=== PATIENT | female | born 1970 | race Caucasian/White ===

== ENCOUNTER 2017-01-14 20:36 | Emergency (ER) | payer MEDICAID ==
[2017-01-14 20:43] VITALS: RESP 16; TEMP 98.4
[2017-01-14 21:51] LABS: % IMMATURE GRANULYOCYTES 1.1 % (0.0-1.1); ABSOLUTE IMMATURE GRANULOCYTES 0.07 10^3/uL (0.00-0.10); ADD DIFF? NO; ADD MORPH? NO; ADD SCAN? NO; ATYPICAL LYMPHOCYTE FLAG 20 (0-99); FRAGMENT RBC FLAG 0 (0-99); HEMATOCRIT 38.3 % (38.0-47.0); HEMOGLOBIN 12.4 g/dL (12.6-16.3); LEFT SHIFT FLG 10 (0-99); LIPEMIA HEMOLYSIS FLAG 80 (0-99); MEAN CELL HEMOGLOBIN CONCENTR. 32.4 g/dL (32.4-36.7); MEAN CELL VOLUME 89.5 fL (81.5-99.8); PLATELET CLUMPS FLAG 0 (0-99); PLATELET COUNT 310 10^3/uL (150-400); RED BLOOD CELL COUNT 4.28 10^6/uL (4.18-5.33)
[2017-01-14 21:52] LABS: ANION GAP 11 mEq/L (8-16); CALCIUM 9.3 mg/dL (8.5-10.4); CARBON DIOXIDE 24 mEq/l (22-31); CHLORIDE 99 mEq/L (97-110); CREATININE 0.8 mg/dL (0.6-1.0); GLOMERULAR FILTRATION RATE > 60; GLUCOSE 93 mg/dL (70-100); POTASSIUM 4.3 mEq/L (3.5-5.2); SODIUM 134 mEq/L (134-144)
--- NOTE | 2017-01-14 21:56 | CPEKG ---
Heart Rate: 90 RR Interval: 667 P-R Interval: 164 QRSD Interval: 76 QT Interval: 356 QTC Interval: 436 P [place]: 47 QRS [place]: 43 T Wave [place]: 17 EKG Severity - NORMAL ECG - EKG Impression: SINUS RHYTHM Electronically Signed By: Ahsok Marcelino 14-Jan-2017 22:23:15
--- NOTE | 2017-01-14 22:04 | EDPHY ---
H & P Stated Complaint: syncope Time Seen by Provider: 01/14/17 21:22 HPI/ROS: Chief Complaint: Syncope HPI: 46-year-old woman was out this evening with a friend having a beer when she had a hot flash, felt dizzy, later head in her hands and then had a witnessed syncopal episode sewed. Her friend lower her to the ground. She did not hit her head. She was unconscious for maybe 30 seconds. She was then immediately awake and alert and answering questions. She is postmenopausal secondary to a prophylactic oophorectomy for BRCA 1 gene mutation. Patient is a breast cancer survivor status post bilateral mastectomies in July of this year. She had 4 rounds of chemotherapy, the last was on the of this month. She has passed her yousif for her leukopenia. She has not had any fevers or chills. No chest pain or palpitations. No shortness of breath. She is currently without complaint. Does not have a family history of arrhythmia or sudden cardiac . ROS: 10 point Review of Systems is negative except as noted in the HPI. PMH: Breast cancer, BRCA 1 mutation, bilateral mastectomies, bilateral oophorectomies Social History: No smoking, occasional alcohol, occasional marijuana Family History: non-contributory Physical Exam: Gen: Awake, Alert, No Distress HEENT: Nose: no rhinorrhea Eyes: PERRLA, EOMI Mouth: Moist mucosa Neck: Supple, no JVD Chest: nontender, lungs clear to auscultation Heart: S1, S2 normal, no murmur Abd: Soft, non-tender, no guarding Back: no CVA tenderness, no midline tenderness Ext: no edema, non-tender Skin: no rash Neuro: CN II-XII intact, Sensation grossly intact, Strength 5/5 in bilateral upper and lower extremities - Personal History LMP (Females 10-55): Over 28 Days Ago Current Tetanus/Diphtheria Vaccine: Yes - Medical/Surgical History Hx Asthma: Yes Hx Chronic Respiratory Disease: No Hx Diabetes: No Hx Cardiac Disease: No Hx Renal Disease: No Hx Cirrhosis: No Hx Alcoholism: No Hx HIV/AIDS: No Hx Splenectomy or Spleen Trauma: No Other PMH: PSHx: bilateral mastectomy 08/19/2016, biilat oophorectomy 2015. PMHx: exercise induced asthma, stage 1 grade 3 triple negative breast cancer - Social History Smoking Status: Never smoked Constitutional: Initial Vital Signs Temperature (C) 36.9 C 01/14/17 20:39 Heart Rate 107 H 01/14/17 20:39 Respiratory Rate 16 01/14/17 20:39 Blood Pressure 103/72 01/14/17 20:39 O2 Sat (%) 96 01/14/17 20:39 O2 Delivery Mode Room Air Allergies/Adverse Reactions: Sulfa (Sulfonamide Antibiotics) Allergy (Severe, Verified 05/01/16 14:17) Other-Enter Comments Penicillins Allergy (Intermediate, Verified 05/01/16 14:17) Rash Home Medications: Medication Instructions Recorded Multivitamins [Tab-A-[place]] 1 each PO DAILY 09/12/14 clonazePAM [klonoPIN (RX)] 1 mg PO DAILY PRN 09/12/14 Albuterol 02/13/16 Claritin 01/14/17 Flexeril 01/14/17 IBUPROFEN 01/14/17 LORAZEPAM 01/14/17 Medical Decision Making - Diagnostics EKG Interpretation: ECG time 9:55 p.m., sinus rhythm with a rate of 90, normal axis, normal intervals, no acute ST or T-wave changes. Impression: Normal ECG. ED Course/Re-evaluation: 46-year-old woman with symptoms consistent with a vasovagal syncope. She was having a hot flash secondary to her perimenopausal symptoms when she had her syncope. She has no risk factors for arrhythmia. She has a normal CBC, normal chemistry and a normal ECG. She has not have any risk factors for arrhythmia. She is otherwise without complaint. Will discharge with follow-up with primary care physician, return for worsening. - Data Points Laboratory Results: Laboratory Results 01/14/17 21:20 01/14/17 21:20 01/14/17 01/14/17 21:20 21:20 WBC 6.10 10^3/uL 10^3/uL (3.80-9.50) RBC 4.28 10^6/uL 10^6/uL (4.18-5.33) Hgb 12.4 g/dL L g/dL (12.6-16.3) Hct 38.3 % % (38.0-47.0) MCV 89.5 fL fL (81.5-99.8) MCH 29.0 pg pg (27.9-34.1) MCHC 32.4 g/dL g/dL (32.4-36.7) RDW 17.0 % H % (11.5-15.2) Plt Count 310 10^3/uL 10^3/uL (150-400) MPV 8.0 fL L fL (8.7-11.7) Neut % (Auto) 65.8 % % (39.3-74.2) Lymph % (Auto) 20.7 % % (15.0-45.0) [place] % (Auto) 10.0 % % (4.5-13.0) Eos % (Auto) 0.3 % L % (0.6-7.6) Baso % (Auto) 2.1 % H % (0.3-1.7) Nucleat RBC Rel Count 0.0 % % (0.0-0.2) Absolute Neuts (auto) 4.01 10^3/uL 10^3/uL (1.70-6.50) Absolute Lymphs (auto) 1.26 10^3/uL 10^3/uL (1.00-3.00) Absolute Monos (auto) 0.61 10^3/uL 10^3/uL (0.30-0.80) Absolute Eos (auto) 0.02 10^3/uL L 10^3/uL (0.03-0.40) Absolute Basos (auto) 0.13 10^3/uL H 10^3/uL (0.02-0.10) Absolute Nucleated RBC 0.00 10^3/uL 10^3/uL (0-0.01) Immature Gran % 1.1 % % (0.0-1.1) Immature Gran # 0.07 10^3/uL 10^3/uL (0.00-0.10) Sodium 134 mEq/L mEq/L (134-144) Potassium 4.3 mEq/L mEq/L (3.5-5.2) Chloride 99 mEq/L mEq/L (97-110) Carbon Dioxide 24 mEq/l mEq/l (22-31) Anion Gap 11 mEq/L mEq/L (8-16) BUN 7 mg/dL mg/dL (7-23) Creatinine 0.8 mg/dL mg/dL (0.6-1.0) Estimated GFR > 60 Glucose 93 mg/dL mg/dL (70-100) Calcium 9.3 mg/dL mg/dL (8.5-10.4) Departure - Departure Disposition: Home, Routine, Self-Care Clinical Impression: Vasovagal syncope Condition: Good Instructions: Syncope (ED) Additional Instructions: Return to the emergency department for increasing lightheadedness, palpitations , fainting, chest pain, shortness of breath, or any other concerns. Referrals: CHRISTAL WILKES [Other] - As per Instructions
[2017-01-14 22:14] VITALS: BP 126/81; PULSE 97; O2SAT 98
== END 2017-01-14 22:13 | disposition home or self-care (01) ==
DX: R55 Syncope and collapse (principal); J45.909 Unspecified asthma, uncomplicated; Z85.3 Personal history of malignant neoplasm of breast

== ENCOUNTER → 2017-04-20 | Outpatient (CLI) | payer MEDICAID | LOC: BRMIMAGING 10:03 | PROVIDERS: ATTEND Physician Assistant | DX: Z13.820 Encounter for screening for osteoporosis (principal); M85.80 Other specified disorders of bone density and structure, unspecified site; C50.412 Malignant neoplasm of upper-outer quadrant of left female breast; Z78.0 Asymptomatic menopausal state ==

== ENCOUNTER → 2017-10-07 | Outpatient (CLI) | payer MEDICAID | LOC: BMCIMAGING 13:20 | PROVIDERS: ATTEND Internal Medicine Hematology & Oncology | DX: E05.90 Thyrotoxicosis, unspecified without thyrotoxic crisis or storm (principal); Z85.3 Personal history of malignant neoplasm of breast | CPT/HCPCS: 76536-PO ==

== ENCOUNTER → 2017-10-15 | Outpatient (CLI) | payer MEDICAID | LOC: FIMAGING 08:50 | PROVIDERS: ATTEND Physician Assistant | DX: E05.90 Thyrotoxicosis, unspecified without thyrotoxic crisis or storm (principal); R93.8 Abnormal findings on diagnostic imaging of other specified body structures | CPT/HCPCS: 78014; A9516 ==

== ENCOUNTER → 2017-11-17 | Outpatient (CLI) | payer MEDICAID ==
[~2017-11-17] MED LIST: GADOBUTROL 10 ML VIAL IVP ONE
== END ==
LOC: FIMAGING 09:22
PROVIDERS: ATTEND Internal Medicine Hematology & Oncology
DX: R51 Headache (principal); R55 Syncope and collapse; C50.412 Malignant neoplasm of upper-outer quadrant of left female breast
CPT/HCPCS: A9585

== ENCOUNTER → 2018-01-06 | Outpatient (CLI) | payer MEDICAID | LOC: FIMAGING 10:56 | PROVIDERS: ATTEND Internal Medicine Hematology & Oncology | DX: M54.6 Pain in thoracic spine (principal); C50.412 Malignant neoplasm of upper-outer quadrant of left female breast | CPT/HCPCS: 78306; A9503 ==